=== PATIENT | male | born 1970 | race African-American/Black ===

== ENCOUNTER 2017-04-07 09:01 | Inpatient (IN) | payer MEDICAID ==
[~2017-04-07] VITALS: Ht 170.2 cm; Wt 62.3 kg
[~2017-04-07 09:01] MED LIST: COL100 PO; MOTRIN800 MG PO; NOR10T PO; NORCO1 TA2 PO; ROBAXIN-750750 MG PO
[2017-04-07 10:21] LABS: BASOPHIL % 1.3 % (0-2); PLATELET COUNT 212 x10^3mcL (130-400); RED CELL DISTRIBUTION WIDTH 13.5 % (11.5-14.5)
[2017-04-07 10:38] LABS: ALBUMIN 3.7 g/dL (3.4-5.0); ALKALINE PHOSPHATASE 93 U/L (46-116); ALT/SGPT 17 U/L (16-63); AST/SGOT 13 U/L (15-37); BILIRUBIN TOTAL 0.3 mg/dL (0.20-1.00); CALCIUM 8.5 mg/dL (8.5-10.1); CARBON DIOXIDE 30.2 mmol/L (21-32); CHLORIDE SERUM 105 mmol/L (98-107); CREATININE SERUM 1.1 mg/dL (0.7-1.3); GFR1 > 60 mL/min; GLUCOSE SERUM 83 mg/dL (74-106); POTASSIUM SERUM 4.7 mmol/L (3.5-5.1); SODIUM SERUM 139 mmol/L (136-145); TOTAL PROTEIN, SERUM 7.1 g/dL (6.4-8.2)
[2017-04-07] MEDS ORDERED: TUMS REGULAR S500 MG CH (10:47)
[2017-04-07 11:09] LABS: CHOLESTEROL/HDL RATIO 2.4
[2017-04-07 11:15] LABS: T3 TOTAL 0.94 ng/mL
[2017-04-07 11:47] LABS: FREE T4 0.74 ng/dL (0.76-1.46)
[2017-04-07 11:48] LABS: FREE THYROXINE INDEX 1.7 ug/dL (1.4-4.5); T4(THYROXINE) 4.6 ug/dL (4.7-13.3)
[2017-04-07 11:57] LABS: microscopic required? NO
[2017-04-07 12:15] LABS: UA SPECIFIC GRAVITY <=1.005 (1.005-1.035); urine erythrocyte NEGATIVE (NEGATIVE)
[2017-04-07 12:28] VITALS: BP 114/77
[2017-04-07 12:31] VITALS: BP 114/77
[2017-04-07 12:47] LABS: AMPHETAMINE QUAL UR NONE DETECTED (NEG <=1000)
[2017-04-07 17:51] VITALS: BP 108/74
[2017-04-07 20:38] VITALS: BP 109/72
[2017-04-08 05:54] VITALS: BP 94/63
[2017-04-08 06:21] LABS: BASOPHIL % 0.7 % (0-2); PLATELET COUNT 193 x10^3mcL (130-400); RED CELL DISTRIBUTION WIDTH 13.8 % (11.5-14.5)
[2017-04-08 06:38] LABS: CALCIUM 8.3 mg/dL (8.5-10.1); CARBON DIOXIDE 26.9 mmol/L (21-32); CHLORIDE SERUM 105 mmol/L (98-107); GFR1 > 60 mL/min; GLUCOSE SERUM 79 mg/dL (74-106); MAGNESIUM 1.9 mg/dL (1.8-2.4); PHOSPHOROUS 3.6 mg/dL (2.5-4.9); POTASSIUM SERUM 4.3 mmol/L (3.5-5.1); SODIUM SERUM 136 mmol/L (136-145)
[2017-04-08 09:54] VITALS: BP 115/47
[2017-04-08 13:49] VITALS: BP 113/78
[2017-04-08 17:16] VITALS: BP 111/75
[2017-04-08 17:26] VITALS: BP 135/95
[2017-04-08 21:16] VITALS: BP 118/75
[2017-04-09 05:57] VITALS: BP 110/68
[2017-04-09 06:10] LABS: BASOPHIL % 0.6 % (0-2); PLATELET COUNT 195 x10^3mcL (130-400); RED CELL DISTRIBUTION WIDTH 13.5 % (11.5-14.5)
[2017-04-09 06:28] LABS: CALCIUM 8.4 mg/dL (8.5-10.1); CARBON DIOXIDE 28.5 mmol/L (21-32); CHLORIDE SERUM 107 mmol/L (98-107); GFR1 > 60 mL/min; GLUCOSE SERUM 75 mg/dL (74-106); POTASSIUM SERUM 4.1 mmol/L (3.5-5.1); SODIUM SERUM 142 mmol/L (136-145)
[2017-04-09 09:00] VITALS: BP 110/68
[2017-04-09 09:40] VITALS: BP 115/72
[2017-04-09] MEDS ORDERED: SEN PO (12:14)
[2017-04-09] MEDS ORDERED: GOOD SENSE OMEP20 MG PO (12:22)
[2017-04-09 12:51] VITALS: BP 115/72
== END 2017-04-09 13:35 | disposition home or self-care (01) | DRG 243 ==
LOC: ED 09:01 → DU 10:41
PROVIDERS: Emergency Medicine; Family Medicine; ADMIT Family Medicine
DX: K21.9 Gastro-esophageal reflux disease without esophagitis (principal); K85.90 Acute pancreatitis without necrosis or infection, unspecified; K59.09 Other constipation; K64.9 Unspecified hemorrhoids; M54.5 Low back pain; G89.29 Other chronic pain; G43.909 Migraine, unspecified, not intractable, without status migrainosus; F43.20 Adjustment disorder, unspecified; F12.10 Cannabis abuse, uncomplicated; Z68.21 Body mass index [BMI] 21.0-21.9, adult; Z79.891 Long term (current) use of opiate analgesic
CPT/HCPCS: 80307; 83880; 84439; C9113; J2270; J7030; Q0092

== ENCOUNTER 2017-05-17 17:38 | Emergency (ER) | payer MEDICAID ==
[~2017-05-17 17:38] MED LIST changes: +GOOD SENSE OMEP20 MG PO; +SEN PO; +TUMS REGULAR S500 MG CH
[2017-05-17 19:17] VITALS: BP 110/68
== END 2017-05-17 19:17 | disposition home or self-care (01) ==
LOC: ED 17:38
DX: R51 Headache (principal); M54.2 Cervicalgia; R11.10 Vomiting, unspecified; K21.9 Gastro-esophageal reflux disease without esophagitis; K59.00 Constipation, unspecified; M25.512 Pain in left shoulder
CPT/HCPCS: J1200; J1885; Q0162

== ENCOUNTER 2018-05-03 08:26 | Emergency (ER) | payer OTHER ==
[~2018-05-03] VITALS: Ht 167.6 cm; Wt 60.3 kg
[2018-05-03 08:45] VITALS: Ht 167.6 cm; Wt 60.3 kg
[2018-05-03 11:11] LABS: BASOPHIL % 0.2 % (0-2); PLATELET COUNT 221 x10^3mcL (130-400); RED CELL DISTRIBUTION WIDTH 13.4 % (11.5-14.5)
[2018-05-03 11:12] LABS: CARBON DIOXIDE 28 mmol/L (21-32); CHLORIDE SERUM 111 mmol/L (98-107); GLUCOSE SERUM 137 mg/dL (74-106); SODIUM SERUM 138 mmol/L (136-145); TOTAL PROTEIN, SERUM 7.6 g/dL (6.4-8.2)
[2018-05-03 11:13] LABS: ALBUMIN 3.9 g/dL (3.4-5.0); ALKALINE PHOSPHATASE 81 U/L (46-116); BILIRUBIN TOTAL 0.4 mg/dL (0.20-1.00); CALCIUM 9.3 mg/dL (8.5-10.1); CREATININE SERUM 0.8 mg/dL (0.7-1.3); GFR1 > 60 mL/min
[2018-05-03 11:55] LABS: ALT/SGPT 19 U/L (16-63); AST/SGOT 15 U/L (15-37)
[2018-05-03 12:22] VITALS: BP 118/69
== END 2018-05-03 12:22 | disposition home or self-care (01) ==
LOC: ED 08:26
PROVIDERS: Emergency Medicine
DX: R11.10 Vomiting, unspecified (principal); R19.7 Diarrhea, unspecified; R50.9 Fever, unspecified; J02.9 Acute pharyngitis, unspecified; R10.10 Upper abdominal pain, unspecified; Z91.041 Radiographic dye allergy status; Z90.89 Acquired absence of other organs
CPT/HCPCS: J2405; J7030; Q0162

== ENCOUNTER 2019-04-16 13:02 | Emergency (ER) | payer SELFPAY ==
[~2019-04-16] VITALS: Ht 170.2 cm; Wt 66.7 kg
[2019-04-16 13:08] VITALS: Ht 170.2 cm; Wt 66.7 kg
[2019-04-16 13:50] LABS: BASOPHIL % 1.1 % (0-2); PLATELET COUNT 226 x10^3mcL (130-400); RED CELL DISTRIBUTION WIDTH 13.6 % (11.5-14.5)
[2019-04-16 13:59] LABS: CALCIUM 8.7 mg/dL (8.5-10.1); CARBON DIOXIDE 31.6 mmol/L (21-32); CHLORIDE SERUM 104 mmol/L (98-107); CREATININE SERUM 1.1 mg/dL (0.7-1.3); GFR1 > 60 mL/min; GLUCOSE SERUM 68 mg/dL (74-106); POTASSIUM SERUM 3.8 mmol/L (3.5-5.1); SODIUM SERUM 141 mmol/L (136-145)
[2019-04-16 14:03] LABS: ALKALINE PHOSPHATASE 101 U/L (46-116); ALT/SGPT 21 U/L (16-63); AST/SGOT 12 U/L (15-37); BILIRUBIN TOTAL 0.3 mg/dL (0.20-1.00); TOTAL PROTEIN, SERUM 7.1 g/dL (6.4-8.2)
[2019-04-16 14:04] LABS: ALBUMIN 3.3 g/dL (3.4-5.0)
[2019-04-16 15:03] VITALS: BP 121/78
== END 2019-04-16 15:04 | disposition home or self-care (01) ==
LOC: ED 13:02
PROVIDERS: Emergency Medicine
DX: R42 Dizziness and giddiness (principal); Z88.8 Allergy status to other drugs, medicaments and biological substances; Z90.49 Acquired absence of other specified parts of digestive tract
CPT/HCPCS: 36415; 82962; J8597; Q0092

== ENCOUNTER 2019-08-27 00:17 | Emergency (ER) | payer OTHER ==
[~2019-08-27] VITALS: Ht 167.6 cm; Wt 67.6 kg
[2019-08-27 00:35] VITALS: Ht 167.6 cm; Wt 67.6 kg
[2019-08-27 01:27] LABS: BASOPHIL % 0.6 % (0-2); PLATELET COUNT 219 x10^3mcL (130-400); RED CELL DISTRIBUTION WIDTH 14.1 % (11.5-14.5)
[2019-08-27 01:40] LABS: CHLORIDE SERUM 104 mmol/L (98-107); POTASSIUM SERUM 3.8 mmol/L (3.5-5.1); SODIUM SERUM 140 mmol/L (136-145)
[2019-08-27 01:41] LABS: ALT/SGPT 19 U/L (16-63); AST/SGOT 18 U/L (15-37); BILIRUBIN TOTAL 0.4 mg/dL (0.20-1.00); CALCIUM 8.7 mg/dL (8.5-10.1); CREATININE SERUM 1.2 mg/dL (0.7-1.3); GFR1 > 60 mL/min; GLUCOSE SERUM 119 mg/dL (74-106); TOTAL PROTEIN, SERUM 8.1 g/dL (6.4-8.2)
[2019-08-27 01:42] LABS: ALKALINE PHOSPHATASE 92 U/L (46-116)
[2019-08-27 03:45] VITALS: BP 100/63
== END 2019-08-27 03:45 | disposition home or self-care (01) ==
LOC: ED 00:17
DX: K52.9 Noninfective gastroenteritis and colitis, unspecified (principal); Z98.890 Other specified postprocedural states; Z90.89 Acquired absence of other organs; Z88.8 Allergy status to other drugs, medicaments and biological substances
CPT/HCPCS: 36415